=== PATIENT | female | born 1980 | race Caucasian/White ===

== ENCOUNTER → 2023-07-30 14:56 | Outpatient (CLI) | payer BC, SELFPAY ==
--- NOTE | 2023-07-30 14:44 | DI.RAD_ITS ---
Exam(s) XR ELBOW RT COMPLETE EXAM: XR ELBOW RT COMPLETE CLINICAL HISTORY: M25.521 pain RT elbow, HX giant cell tumor R knee. TECHNIQUE: 2D digital imaging was performed. Three views. COMPARISON: No exams were available for comparison FINDINGS: BONES: No acute fracture is present. No bony destructive lesion is seen. Tiny spur medial epicondyle . JOINTS: The elbow is normally aligned. No joint effusion is seen. Joint spaces are maintained. No n o significant degenerative changes. SOFT TISSUE: Normal. IMPRESSION: Unremarkable radiographs of the right elbow. DATA REPOSITORY: RADIATION DOSE DELIVERED:
== END ==
PROVIDERS: PCP Nurse Practitioner Family; Visit Provider Nurse Practitioner Family
DX: M25.521 Pain in right elbow (principal)
CPT/HCPCS: 73080

== ENCOUNTER 2023-10-15 08:51 | Outpatient (CLI) | payer BC, SELFPAY ==
[2023-10-15 10:25] LABS: Hemoglobin A1C 5.9 % (<5.7)
[2023-10-15 10:37] LABS: Anion Gap 8.8 mmol/L (3-11); BUN 10 mg/dL (7-18); CO2 29.2 mmol/L (21.0-32.0); CREATININE 0.8 mg/dL (0.55-1.02); Calcium 9.2 mg/dL (8.5-10.1); Calculated LDL 109 mg/dL (<100); Chloride 102 mmol/L (98-107); Cholesterol 202 mg/dL (<200); Estimated GFR 92.54 (mL/min/1.73m2); Glucose 123 mg/dL (74-106); HDL Cholesterol 60 mg/dL (40-60); Potassium 3.6 mmol/L (3.5-5.1); Sodium 140 mmol/L (136-145); TSH (W/Ref FT4) 1.31 uIU/mL (0.36-3.74); Triglyceride 169 mg/dL (<150)
== END 2023-10-15 08:52 | disposition home or self-care (01) ==
LOC: LBO 08:51
PROVIDERS: PCP Nurse Practitioner Family; Visit Provider Nurse Practitioner Family
DX: Z00.00 Encounter for general adult medical examination without abnormal findings (principal); N02.B9 Other recurrent and persistent immunoglobulin A nephropathy; E66.9 Obesity, unspecified; Z83.49 Family history of other endocrine, nutritional and metabolic diseases
CPT/HCPCS: 36415; 80048; 80061; 83036; 84443